=== PATIENT | female | born 1970 | race Hispanic/Latino ===

== ENCOUNTER 2016-11-04 13:11 | Emergency (ER) | payer MEDICAID, OTHER ==
[2016-11-04 13:11] VITALS: BMI 25.7
[2016-11-04] MEDS ORDERED: Albuterol-Ipratrop 3 mg / 0.5 (3 ml) UD INH STA ×2 (14:07→15:51)
[2016-11-04] MEDS ORDERED: Albuterol-Ipratrop 3 mg / 0.5 (3 ml) UD ONE ×2 (14:19→16:09)
--- NOTE | 2016-11-04 14:53 | RAD ---
HISTORY: cough, rhonchi COMPARISON: Chest x-ray performed 06/16/15 TECHNIQUE: Chest PA and lateral FINDINGS: LUNGS: Mild patchy parahilar and infrahilar opacities suspicious for pneumonia. Please note that chest x-ray has limited sensitivity for the detection of pulmonary masses. PLEURA: No significant pleural effusion identified. No definite pneumothorax . CARDIOVASCULAR: The cardiomediastinal silhouette appears within normal limits of size. OSSEOUS STRUCTURES: No acute osseous abnormality identified. VISUALIZED UPPER ABDOMEN: Unremarkable. OTHER FINDINGS: None. IMPRESSION: Mild patchy parahilar and infrahilar opacities suspicious for pneumonia.
--- NOTE | 2016-11-04 15:31 | C.PDOC ---
History Of Present Illness Patient is a 46 y/o female that presents to the ED for evaluation of cough, shortness of breath, and wheezing for the past week. Patient is also requesting detox from heroin. Otherwise, denies any fever, chills, chest pain, or any other associated symptoms at this time. Time Seen by Provider: 11/04/16 13:40 Chief Complaint (Nursing): Shortness Of Breath History Per: Patient History/Exam Limitations: no limitations Onset/Duration Of Symptoms: Days (1 week) Current Symptoms Are (Timing): Still Present Exacerbating Factor(s): Coughing Severity: None Pain Scale Rating Of: 0 Associated Symptoms: denies: Fever, Chills, Sweating, Chest Pain, Bloody Cough, Heart Racing, Leg/Calf Pain, Ankle/Leg Swelling, Dizziness, Light-headedness, Anxiety, Tingling In Hands Or Face, Musle Spasms In Hands Or Feet Recent travel outside of the [place]: No Additional History Per: Patient Past Medical History Reviewed: Historical Data, Nursing Documentation, Vital Signs Vital Signs: Last Vital Signs Temp 97 F L 11/04/16 17:13 Pulse 94 H 11/04/16 17:13 Resp 18 11/04/16 17:13 BP 120/59 L 11/04/16 17:13 Pulse Ox 98 11/04/16 17:13 - Medical History PMH: Anxiety, Depression, Fractures (left ankle 09/19), Gastritis Denies: Diabetes, Hepatitis, HIV, HTN, Chronic Kidney Disease, Seizures, Sexually Transmitted Disease - [facility] Procedures APPLICATION OF SPLINT (09/26/14) DETOXIFICATION SERVICES FOR SUBSTANCE ABUSE TREATMENT (06/16/15) OPEN REDUC-ANKLE DISLOC (10/15/14) Family History: States: Unknown Family Hx - Social History Hx Tobacco Use: Yes Hx Alcohol Use: No Hx Substance Use: Yes (Intranasal) - Immunization History Hx Tetanus Toxoid Vaccination: No Hx Influenza Vaccination: No Hx Pneumococcal Vaccination: No Review Of Systems Except As Marked, All Systems Reviewed And Found Negative. Constitutional: Negative for: Fever, Chills Cardiovascular: Negative for: Chest Pain, Palpitations, Edema, Light Headedness Respiratory: Positive for: Cough, Shortness of Breath, Wheezing. Negative for: Hemoptysis Gastrointestinal: Negative for: Nausea, Vomiting Physical Exam - Physical Exam Appears: Non-toxic, No Acute Distress Skin: Normal Color, Warm, Dry Head: Atraumatic, Normacephalic Eye(s): bilateral: Normal Inspection, EOMI Neck: Normal ROM, Supple Chest: Symmetrical, No Tenderness Cardiovascular: Rhythm Regular, No Murmur Respiratory: No Rales, Rhonchi (scattered rhonchi on right side), Wheezing ( expiratory wheezing on left side) Gastrointestinal/Abdominal: Soft, No Tenderness Neurological/Psych: Oriented x3, Normal Speech, Normal Cognition ED Course And Treatment O2 Sat by Pulse Oximetry: 96 (on RA) Pulse Ox Interpretation: Normal Progress Note: CXR ordered and reviewed. Patient was treated with Albuterol in the ER. Medical Decision Making Medical Decision Making: pt with infiltrate on cxr; still with expiratory wheezing in left and right sides after one neb. will order second neb, first dose antibiotics and steroids. [id number] pt lungs now cta b/l s/p 2 neb txs. will d/c with zithromax, albuterol mdi and prednosone. pt made aware there are no detox beds available; given resource sheet. Disposition Counseled Patient/Family Regarding: Studies Performed, Diagnosis, Need For Followup, Rx Given - Disposition Referrals: Sergio Melissa DO [Staff Provider] - Disposition: HOME/ ROUTINE Disposition Time: 17:10 Condition: GOOD Prescriptions: Albuterol HFA [Ventolin HFA 90 mcg/actuation (8 g)] 2 puff IH QID #1 inhaler Azithromycin [Z-Sravan] 250 mg PO DAILY #4 tab predniSONE [predniSONE Tab] 20 mg PO BID #10 tab Instructions: Community Acquired Pneumonia (ED) Forms: General Discharge Instructions - Clinical Impression Clinical Impression: Pneumonia - PA / CLINICAL CYTOPATHOLOGIST / Resident Statement / has reviewed & agrees with the documentation as recorded. - Scribe Statement The provider has reviewed the documentation as recorded by the Teresaibe Shaneka Velazco All medical record entries made by the Teresaibe were at my direction and personally dictated by me. I have reviewed the chart and agree that the record accurately reflects my personal performance of the history, physical exam, medical decision making, and the department course for this patient. I have also personally directed, reviewed, and agree with the discharge instructions and disposition.
[2016-11-04 17:14] VITALS: BP 120/59; PULSE 94; RESP 18; TEMP 97
[2016-11-04 18:44] VITALS: O2SAT 96
== END 2016-11-04 17:14 | disposition home or self-care (01) ==
LOC: C.ER 13:11
DX: J18.9 Pneumonia, unspecified organism (principal)

== ENCOUNTER 2017-05-27 15:45 | Inpatient (IN) | payer MEDICAID, OTHER ==
[2017-05-27 15:45] VITALS: BMI 25.7
[2017-05-27] MEDS ORDERED: Albuterol-Ipratrop 3 mg / 0.5 (3 ml) UD INH STA (16:33)
--- NOTE | 2017-05-27 16:37 | C.PDOC ---
History Of Present Illness 47 y/o female presents to ED requesting heroin detox. She reports that she last used prior just to arrival. At ED patient complaints of some wheezing secondary to heroin use. She reports "this always happens when i do heroin." Denies chest pain or shortness of breath. Patient denies fever, chills, nausea , vomiting or any other complaints at this time. Time Seen by Provider: 05/27/17 16:04 Chief Complaint (Nursing): Substance Abuse History Per: Patient History/Exam Limitations: no limitations Onset/Duration Of Symptoms: Hrs Current Symptoms Are (Timing): Still Present Suicide/Self Injury Attempted (Context): None Past Medical History Reviewed: Historical Data, Nursing Documentation, Vital Signs Vital Signs: Last Vital Signs Temp 98 F 05/27/17 16:03 Pulse 89 05/27/17 16:03 Resp 20 05/27/17 16:49 BP 134/73 05/27/17 16:03 Pulse Ox 95 05/27/17 17:56 - Medical History PMH: Anxiety, Depression, Fractures (left ankle 09/19), Gastritis Surgical History: No Surg Hx - [facility] Procedures APPLICATION OF SPLINT (09/26/14) DETOXIFICATION SERVICES FOR SUBSTANCE ABUSE TREATMENT (06/16/15) OPEN REDUC-ANKLE DISLOC (10/15/14) Family History: States: No Known Family Hx - Social History Hx Tobacco Use: Yes Hx Alcohol Use: No Hx Substance Use: Yes (Intranasal) - Immunization History Hx Tetanus Toxoid Vaccination: No Hx Influenza Vaccination: No Hx Pneumococcal Vaccination: No Review Of Systems Constitutional: Negative for: Fever, Chills Cardiovascular: Negative for: Chest Pain, Palpitations, Paroxysmal Noc. Dyspnea Respiratory: Positive for: Wheezing. Negative for: Cough, Shortness of Breath, SOB with Excertion Gastrointestinal: Negative for: Nausea, Vomiting Genitourinary: Negative for: Dysuria Skin: Negative for: Rash Neurological: Negative for: Weakness, Numbness, Altered Mental Status, Headache Psych: Negative for: Anxiety, Depression, Suicidal ideation Physical Exam - Physical Exam Appears: Well, Non-toxic, No Acute Distress Skin: Warm, Dry, No Rash Head: Atraumatic, Normacephalic Eye(s): bilateral: Normal Inspection Oral Mucosa: Moist Throat: Normal, No Erythema, No Exudate Neck: Supple Chest: Symmetrical Cardiovascular: Rhythm Regular Respiratory: No Rales, No Rhonchi, Wheezing (scant bilateral) Gastrointestinal/Abdominal: Soft, No Tenderness, No Guarding, No Rebound Back: Normal Inspection, No CVA Tenderness Extremity: Normal ROM Neurological/Psych: Oriented x3, Normal Speech Gait: Steady ED Course And Treatment - Laboratory Results Result Diagrams: 05/27/17 16:42 05/27/17 16:42 O2 Sat by Pulse Oximetry: 95 (RA) Pulse Ox Interpretation: Normal Medical Decision Making Medical Decision Making: Progress: Patient is pre-screened for detox. She has scant wheezing and is requesting nebulizer. EKG shows NSR at 76bpm with normal intervals and no ST changes. Cxray negative. Labs grossly normal. Medically cleared for detox and accepted by Dr. Car Disposition - Disposition Disposition: HOSPITALIZED Disposition Time: 18:17 Condition: FAIR Forms: [facility] (Amharic) - Clinical Impression Clinical Impression: Opioid use disorder, mild, abuse - Scribe Statement The provider has reviewed the documentation as recorded by the Scribmorris Reeves All medical record entries made by the Teresaibmorris were at my direction and personally dictated by me. I have reviewed the chart and agree that the record accurately reflects my personal performance of the history, physical exam, medical decision making, and the department course for this patient. I have also personally directed, reviewed, and agree with the discharge instructions and disposition.
[2017-05-27] MEDS ORDERED: Albuterol-Ipratrop 3 mg / 0.5 (3 ml) UD ONE (16:45)
[2017-05-27 16:47] LABS: BASO % 0.2 % (0.0-2.0); EOS # 0.4 K/uL (0.0-0.7); EOS % 3.9 % (0.0-4.0); HEMATOCRIT 43.3 % (34.0-47.0); LYMPH # 1.9 K/uL (1.0-4.3); LYMPH % 17.7 % (20.0-40.0); MEAN CORPUSCULAR HEMOGLOBIN 27.9 pg (27.0-31.0); MEAN CORPUSCULAR HGB CONC 33.6 g/dL (33.0-37.0); MEAN PLATELET VOLUME 8.2 fL (7.2-11.7); MONO # 0.5 K/uL (0.0-0.8); MONO % 4.4 % (0.0-10.0); NRBC % 0.1 % (0.0-2.0)
[2017-05-27 16:51] LABS: WHITE BLOOD COUNT 10.7 K/uL (4.8-10.8)
[2017-05-27 16:52] LABS: MEAN CELL VOLUME 82.9 fL (81.0-99.0)
[2017-05-27 17:05] LABS: RBC URINE < 1 /hpf (0-3); URINE BILIRUBIN NEGATIVE (NEGATIVE); URINE BLOOD NEGATIVE (NEGATIVE); URINE COLOR Yellow (YELLOW); URINE GLUCOSE (UA) NORMAL (Normal); URINE KETONE NEGATIVE (NEGATIVE); URINE LEUKOCYTE ESTERASE NEG Leu/uL (Negative); URINE PROTEIN NEGATIVE (NEGATIVE); URINE UROBILINOGEN NORMAL mg/dL (0.2-1.0); WBC URINE 1 /hpf (0-5)
[2017-05-27 17:22] LABS: ALB/GLOB RATIO 1.4 (1.0-2.1); ALCOHOL SERUM < 10 mg/dl (0-10); ALKALINE PHOSPHATASE 64 U/L (38-126); ALT/SGPT 26 U/L (9-52); AST/SGOT 19 U/L (14-36); BILIRUBIN,TOTAL 0.7 mg/dL (0.2-1.3); BLOOD UREA NITROGEN 12 mg/dL (7-17); CALCIUM 8.8 mg/dl (8.6-10.4); CARBON DIOXIDE 28 mmol/L (22-30); CHLORIDE 99 mmol/L (98-107); GFR AFRICAN-AMERICAN > 60; GLUCOSE,RANDOM 131 mg/dL (65-105); POTASSIUM 3.7 mmol/L (3.6-5.2); SODIUM 139 mmol/L (132-148); TOTAL PROTEIN 7.5 g/dL (6.3-8.3)
[2017-05-27 20:13] VITALS: RESP 18
[2017-05-27] MEDS ORDERED: Aluminum Hydroxide/Magnesium Hydroxide Susp (30 mL) PO PRN (23:41)
--- NOTE | 2017-05-28 07:03 | PCM.BM ---
<LoydFouzia Bola - Last Filed: 05/28/17 07:00> Treatment Plan Problems - Problems identified on initial assessmt Opiate Dependence Date Initiated: 05/27/17 Time Initiated: 20:00 Assessment reference: NA Status: Active Treatment assets and liabiliti Patient Assests: ADL independent Patient Liabilities: substance abuse - Milieu Protocol Maintain good personal hygiene: daily Encourage regular showers, daily Remind patient to perform daily oral care, daily Assist patient to perform ADL's Maintain personal safety: every shift Educate patient to report safety concerns to staff, every shift Monitor environment for contraband/sharps Medication safety: Monitor for expected outcome, potential side effects: every shift, Assess barriers to learning: every shift, Assess readiness for medication education: every shift <Bee Vega - Last Filed: 05/28/17 11:45> Family Contact Family involvement: Family/SO is involved Family contact: Patient agrees to contact Family contact name: Derek Hidalgo Family contacted how many times per week?: 2 - Goals for Treatment Patient goals for treatment: Complete detox and review aftercare options with Counselors. Discharge/Continuing Care - Education Needs Education Needs: Patient Medication, Patient Diagnosis/Disease Process, Patient Coping Skills, Patient Anger Management skills, Patient Placement options, Patient Community resources, Significant Other Medication, Significant Other Diagnosis/Disease Process, Significant Other Coping Skills, Significant Other Placement options, Significant Other Community resources - Discharge Discharge Criteria: No longer exhibiting s/s of withdrawal, Reduction of target symptoms Discharge to:: With Family - Treatment Team Participation Patient/Family/SO Statement: 05/28/17 11:47 "I don't know what I want to do for aftercare but I'm open to my options". Discussed with Family/SO: No Was Patient/Family/SO present at Treatment Team Meeting: Yes <Joan Childress - Last Filed: 05/28/17 13:24> - Diagnosis (1) Opioid use disorder, severe, dependence Status: Acute Interventions: 05/28/17 13:24 * Assess 7x/week regarding severity of withdrawal * Educate regarding risks, benefits, side effects and alternatives of medications * Use Motivational Interviewing for abstinence * Use CBT for relapse prevention * Medication management for withdrawal symptoms * Encourage medication assisted treatment *
--- NOTE | 2017-05-28 09:10 | RAD ---
HISTORY: detox COMPARISON: No prior. FINDINGS: LUNGS: No focal infiltrate or. Bibasilar breast nipple shadows. Punctate nodular density at the right lung apex may represent confluence of shadows with ribs and vessels. PLEURA: No significant pleural effusion identified, no pneumothorax apparent. CARDIOVASCULAR: Normal. OSSEOUS STRUCTURES: No significant abnormalities. VISUALIZED UPPER ABDOMEN: Normal. OTHER FINDINGS: None. IMPRESSION: No active disease.
[2017-05-28] MEDS ORDERED: Albuterol HFA 90 mcg/actuation (8 g) INH PRN (09:48)
--- NOTE | 2017-05-28 09:58 | PCM.PSYCH ---
Initial Psychiatric Evaluation - Initial Psychiatric Evaluation Type of Admission: Voluntary Legal Status: Capacity Chief Complaint (in patient's own words): "I had to get clean" History of Present Illness and Precipitating Events: The patient is seen, chart reviewed and case discussed. This is a 47-year-old female, with one adult son, unemployed and lives with her . The patient is here for heroin detox; she is using 15-20 bags intranasally for the last month or 2. She states that she relapsed with her when he came from a detox. Her first use was about a year ago and her first painkiller opioid use was 2 years ago. She "occasionally" uses cocaine intranasally also. She uses Xanax on and off, "but not recently." Denies alcohol, marijuana and all other drugs. She smokes half pack per day cigarettes. She denies psych symptoms except for "severe anxiety." Past psych history: Denies Family psych history: Uncle and grandmother had bipolar disorder. Medical history: Asthma Current Medications: Active Medications Generic Name Dose Route Start Last Admin Trade Name Freq PRN Reason Stop Dose Admin Al Hydrox/Mg Hydrox/Simethicone 30 ml 05/27/17 23:41 Maalox 30 Ml PO TID PRN Indigestion / Heartburn Albuterol 1 puff 05/28/17 09:48 Ventolin Hfa 90 Mcg/Actuation (8 G) INH RQ4 PRN SOB Clonidine HCl 0.1 mg 05/27/17 20:38 Catapres PO Q6 PRN withdrawal symptoms Fluticasone Propionate 0 spr 05/28/17 10:00 Flonase ALICE DAILY NEVILLE Guaifenesin 100 mg 05/28/17 09:54 Robitussin PO Q4H PRN Cough Hydroxyzine HCl 25 mg 05/27/17 20:37 Atarax PO Q6 PRN Anxiety Ibuprofen 600 mg 05/27/17 20:40 Motrin Tab PO TID PRN Pain, moderate (4-7) Loperamide HCl 2 mg 05/27/17 23:41 Imodium PO Q8 PRN Diarrhea Lorazepam 1 mg 05/28/17 09:54 Ativan PO DAILY PRN severe anxiety Mirtazapine 30 mg 05/27/17 22:00 05/27/17 22:16 Remeron PO 30 mg HS NEVILLE Administration Ondansetron HCl 4 mg 05/27/17 20:48 Zofran Tab PO Q8 PRN Nausea/Vomiting Pseudoephedrine HCl 60 mg 05/27/17 23:41 Sudafed Tab PO QID PRN Nasal/Sinus Congestion Past Psychiatric History - Past Psychiatric History Previous Treatment History: None Pertinent Medical Hx (Current Medical&Sleep Prob, Allergies): Allergies Allergy/AdvReac Type Severity Reaction Status Date / Time No Known Allergies Allergy Verified 05/27/17 16:03 No Known Home Med 05/27/17 Review of Systems - Psychiatric Psychiatric: Abnormal Sleep Pattern, Anxiety, Difficulty Concentrating, Irritability. absent: Hallucinations, Homicidal Ideation, Suicidal Ideation Mental Status Examination - Personal Presentation Personal Presentation: Looks stated age - Affect Affect: Constricted - Motor Activity Motor Activity: Calm - Reliability in Providing Information Reliability in Providing Information: Good - Speech Speech: Organized - Mood Mood: Anxious - Formal Thought Process Formal Thought Process: No Impairment - Cognitive Functions Orientation: Person, Place, Situation, Time Sensorium: Alert Attention/Concentration: Attentive Estimate of Intelligence: Average Judgement: Intact, as evidence by: Insight regarding need for hospitalization Memory: Recent intact, as evidence by: Ability to recall events of the day, Remote intact, as evidenced by: Ability to recall historical events - Risk Risk: Withdrawal, Diminished functioning - Strength & Assets Inventory Strength & Assets Inventory: Cooperative - Limitations Limitations: Other ( is using) DSM 5 DX - DSM 5 DSM 5 Diagnosis: Opioid withdrawal Opioid use d/o - severe Cocaine use d/o - moderate Sedative hypnotic use d/o - mild Anxiety d/o- unspecified - Recommended/Plan of Treatment Treatment Recommendations and Plan of Treatment: Subutex detox Gabapentin for augmentation and anxiety Asthma treatment As needed medications Attend groups and activities Supportive therapy and psychoeducation [place] for abstinence CBT for relapse prevention and anxiety Encourage MAT Refer to rehab or IOP, and self-help groups Smoking cessation with [place] Nicotine patch if needed 34 min Projected ELOS: 5 days Prognosis: good with treatment Discharge Plan and Discharge Criteria: No wdw sx - Smoking Cessation Smoking Cessation Initiated: Yes
[2017-05-28] MEDS ORDERED: Fluticasone Nasal 50 mcg/Spray NAS SCH (10:00)
[2017-05-28] MEDS: guaiFENesin 100 mg/5 ml Syrup UD PO PRN ×2 (10:08→20:48)
[2017-05-28] MEDS ORDERED: Albuterol-Ipratrop 3 mg / 0.5 (3 ml) UD INH PRN (12:44)
--- NOTE | 2017-05-28 19:30 | CARD ---
APPROVED REPORT EKG Measurement Heart [id number] <Conclusion> Normal sinus rhythm Normal Electrocardiogram
[2017-05-28 20:53] VITALS: BP 126/74; PULSE 89; TEMP 99.4; O2SAT 96
--- NOTE | 2017-05-29 08:48 | PCM.PYCHDC ---
Mental Status Examination - Mental Status Examination Orientation: Person Discharge Summary - Discharge Note Consultations:: List each consultation separately and include: 1. Reason for request. 2. Findings. 3. Follow-up Summary of Hospital Course include:: 1. Description of specific treatment plan utilized for patients during their course of treatmen. 2. Summarize the time- course for resolution of acute symptoms and/or regressed behaviors. 3. Describe issues identified and worked on during hospitalization. 4. Describe medication utilized. 5. Describe medical problems identified and treated. 6. Reassessment of suicide risk Summary of Hospital Course: The patient is seen, chart reviewed and case discussed. This is a 47-year-old female, with one adult son, unemployed and lives with her . The patient is here for heroin detox; she is using 15-20 bags intranasally for the last month or 2. She states that she relapsed with her when he came from a detox. Her first use was about a year ago and her first painkiller opioid use was 2 years ago. She "occasionally" uses cocaine intranasally also. She uses Xanax on and off, "but not recently." Denies alcohol, marijuana and all other drugs. She smokes half pack per day cigarettes. She denies psych symptoms except for "severe anxiety." Past psych history: Denies Family psych history: Uncle and grandmother had bipolar disorder. Medical history: Asthma - Diagnosis (1) Opioid use disorder, severe, dependence Status: Acute - Final Diagnosis (DSM 5) Condition upon Discharge: FAIR Disposition: AGAINST MEDICAL ADVICE Follow-up Treatment Plan: Subutex detox Gabapentin for augmentation and anxiety Asthma treatment As needed medications Attend groups and activities Supportive therapy and psychoeducation [place] for abstinence CBT for relapse prevention and anxiety Encourage MAT Refer to rehab or IOP, and self-help groups Smoking cessation with [place] Nicotine patch if needed 34 min
== END 2017-05-28 23:13 | disposition left against medical advice (07) | DRG 743 ==
LOC: C.ER 15:45 → C.7D 18:14
PROVIDERS: ADMIT Psychiatry & Neurology Psychiatry; ATTEND Psychiatry & Neurology Psychiatry
DX: F14.90 Cocaine use, unspecified, uncomplicated (principal); F11.23 Opioid dependence with withdrawal; F41.9 Anxiety disorder, unspecified; J45.909 Unspecified asthma, uncomplicated; F17.210 Nicotine dependence, cigarettes, uncomplicated